=== PATIENT | female | born 1930 | race Caucasian/White ===

== ENCOUNTER 2017-10-04 11:42 | Outpatient (CLI) | payer MEDICARE | END 2017-10-04 11:43 | disposition home or self-care (01) | LOC: BICRAD 11:42 | PROVIDERS: ATTEND Specialist | DX: M54.16 Radiculopathy, lumbar region (principal); M48.061 Spinal stenosis, lumbar region without neurogenic claudication; M79.652 Pain in left thigh; M25.552 Pain in left hip; M79.605 Pain in left leg ==

== ENCOUNTER 2017-12-28 09:27 | Outpatient (CLI) | payer MEDICARE | END 2017-12-28 09:28 | disposition home or self-care (01) | LOC: BICMAMMO 09:27 | PROVIDERS: ATTEND Specialist | DX: Z13.820 Encounter for screening for osteoporosis (principal); M85.88 Other specified disorders of bone density and structure, other site | CPT/HCPCS: 77080 ==

== ENCOUNTER 2018-01-11 10:15 | Outpatient (CLI) | payer MEDICARE | END 2018-01-11 10:16 | disposition home or self-care (01) | LOC: BICMRI 10:15 | PROVIDERS: ATTEND Neurological Surgery | DX: M47.26 Other spondylosis with radiculopathy, lumbar region (principal); M51.16 Intervertebral disc disorders with radiculopathy, lumbar region; M51.17 Intervertebral disc disorders with radiculopathy, lumbosacral region; M99.83 Other biomechanical lesions of lumbar region; M47.27 Other spondylosis with radiculopathy, lumbosacral region | CPT/HCPCS: 72148 ==

== ENCOUNTER 2018-01-17 17:57 | Emergency (ER) | payer MEDICARE, OTHER ==
--- NOTE | 2018-01-17 18:48 | RAD ---
LEFT HAND THREE VIEWS: HISTORY: Injury and pain to left hand. FINDINGS: The carpals appear normally aligned and appear intact. The metacarpals and phalanges also appear int act. Mild degenerative changes are seen in the IP joints. IMPRESSION: No evidence of acute fracture. POS: [facility]
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
[2018-01-17] MEDS ORDERED: Bacitracin Zinc 1 Packet ONE (20:54)
== END 2018-01-17 21:42 | disposition home or self-care (01) ==
LOC: ERS 17:57
DX: S60.312A Abrasion of left thumb, initial encounter (principal); E11.9 Type 2 diabetes mellitus without complications; E78.5 Hyperlipidemia, unspecified; I10 Essential (primary) hypertension; V43.62XA Car passenger injured in collision with other type car in traffic accident, initial encounter
CPT/HCPCS: 29125; 70450; 71046; 72125

== ENCOUNTER 2018-06-02 08:52 | Outpatient (CLI) | payer MEDICARE | END 2018-06-02 08:53 | disposition home or self-care (01) | LOC: BICMAMMO 08:52 | PROVIDERS: ATTEND Specialist | DX: Z12.31 Encounter for screening mammogram for malignant neoplasm of breast (principal); Z85.71 Personal history of Hodgkin lymphoma | CPT/HCPCS: 77063; 77067 ==

== ENCOUNTER 2018-09-20 10:38 | Outpatient (CLI) | payer MEDICARE ==
--- NOTE | 2018-09-20 12:23 | CT ---
CT LUMBAR SPINE NONCONTRAST: 09/20/2018 HISTORY: Lumbar radiculopathy with pain radiating down left lower extremity. COMPARISON: MRI lumbar spine on 01/11/2018. FINDINGS: There is prominent right convex scoliosis with scoliotic curvature centered at the level of the L3 ve rtebral body. Multilevel degenerative changes are seen along the left lateral aspect of the scolioti c curvature involving the lumbar spine. Prominent osteophytes are present. The vertebral body heights are within normal limits, and there is no fracture or subluxation identifi ed. T12-L1: There is mild vacuum phenomenon and loss of intervertebral disk height. There is a mild dis k osteophyte complex with a small central disk protrusion. The neural foramina are widely patent, an d there is only slight effacement of the ventral subarachnoid space. L1-L2: There is no significant disk bulge or disk herniation. The central spinal canal and neural f oramina are patent. L2-L3: There is severe loss of intervertebral disk height with vacuum phenomenon present. There is a mild broad-based disk osteophyte complex, and facet hypertrophic changes are present on the left. The right neural foramen is widely patent, but there is mild to moderate left-sided neural foraminal narrowing. L3-L4: There is loss of intervertebral disk height with vacuum phenomenon seen in the intervertebral disk. Degenerative changes are present, greater on the right. There is a disk osteophyte complex p resent, but there is no significant narrowing of the central spinal canal. The right neural foramen is widely patent, but there is moderate left-sided neural foraminal narrowing. The degree of narrowi ng has maybe slightly progressed from the prior MRI examination. L4-L5: There is a mild disk osteophyte complex without significant narrowing of the central spinal c anal. Facet degenerative changes are seen, primarily on the right. There is resultant moderate righ t-sided neural foraminal narrowing. The left neural foramen is patent. L5-S1: There is loss of intervertebral disk height with vacuum phenomenon seen in the intervertebral disk. There is a disk osteophyte complex with what appears to be calcification along the right post erolateral margin of the intervertebral disk. The left neural foramen is patent, but there is modera te right-sided neural foraminal narrowing, primarily due to bony encroachment. The central spinal ca nal is also patent at this level. Review of the retroperitoneal structures demonstrates prominent vascular calcifications in the abdomi nal aorta. There are calcifications seen in an aortocaval location with calcifications in the region of the enlarged lymph node seen on the prior study in 2002, and findings may be related to bulky phillip cifications related to treated lymphoma with resolution of the mass and residual calcification presen t. No enlarged lymph nodes are seen on the visualized retroperitoneal structures on today's exam. IMPRESSION: 1. Multilevel degenerative changes throughout the spine, which do not appear significantly progresse d when compared to MRI examination in 2018. 2. Right convex scoliosis of the lumbar spine. POS: [facility]
== END 2018-09-20 10:39 | disposition home or self-care (01) ==
LOC: TBSIIMAG 10:38
PROVIDERS: ATTEND Neurological Surgery
DX: M47.26 Other spondylosis with radiculopathy, lumbar region (principal); M41.9 Scoliosis, unspecified
CPT/HCPCS: 72131

== ENCOUNTER 2018-10-10 01:42 | Outpatient (CLI) | payer MEDICARE ==
--- NOTE | 2018-10-11 15:55 | EKG ---
Test Reason : Blood Pressure : / mmHG Vent. Rate : 065 BPM Atrial Rate : 065 BPM P-R Int : 132 ms QRS Dur : 070 ms QT Int : 388 ms P-R-T Axes : 024 063 062 degrees QTc Int : 403 ms Sinus rhythm with Premature atrial complexes Anterior infarct , age undetermined cannot be excluded Abnormal ECG Confirmed by EFRA HUTCHINS ([id number]) on 10/11/2018 3:55:13 PM Referred By: TOSHA Confirmed By:EFRA HUTCHINS
== END 2018-10-10 01:43 | disposition home or self-care (01) ==
LOC: LABBT 01:42
PROVIDERS: ATTEND Neurological Surgery
DX: Z01.810 Encounter for preprocedural cardiovascular examination (principal); M54.16 Radiculopathy, lumbar region
CPT/HCPCS: 93005; 93010

== ENCOUNTER 2018-10-14 06:21 | Day surgery (SDC) | payer MEDICARE ==
[2018-10-10 09:28] VITALS: BMI 23.0
--- NOTE | 2018-10-13 16:43 | HP ---
HISTORY OF PRESENT ILLNESS: Ms. Irvin is known to us for evaluation last year of lower back pain and radiculopathy in the left lower extremity, L3 fashion, who ultimately was referred for epidural steroid injection therapy, which she performed for roughly 8 to 12 weeks, little to no relief. Since that time, she has been struggling with pain and has reached a point of exasperation, where now she really feels she would like to see something surgical. MRI from January of [address] scan from today revealed the same issue being levoscoliosis with foraminal stenosis at L3 and lateral recess stenosis at L2-3 and L3-4. She recently also developed some additional tingling down below the distribution of L3, which could possibly indicate L4 involvement, although this is not painful. PAST MEDICAL HISTORY: Includes non-Hodgkin lymphoma, hypertension, gastroesophageal reflux disease, diabetes, osteoporosis, and hypothyroidism. CURRENT MEDICATIONS: 1. Lisinopril. 2. Dexilant. 3. Metformin. 4. Fosamax. 5. Aspirin. 6. Synthroid. ALLERGIES: TO SULFA DRUGS AND NIACIN. PAST SURGICAL HISTORY: Hysterectomy and partial thyroidectomy. PHYSICAL EXAMINATION: GENERAL: The patient is alert and oriented x3. Gait is severely antalgic. Lower extremity motor exam is normal. ASSESSMENT: Lumbar radiculopathy. PLAN: Dr. Coon met with the patient, reviewed imaging, and advocated for left L3-4 facetectomy with unilateral instrumentation and fusion. He explained to the patient the risks, benefits, and alternatives to the procedure. The patient expressed understanding and elected to move forward with surgery as discussed. I do believe the patient is mentally competent and capable of making medical decisions for herself. We will move forward with the surgery as planned. Job ID: [id number]
[2018-10-14] MEDS ORDERED: Thrombin 5000 UNITS/5 ML VIAL ONE (08:44)
[2018-10-14] MEDS ORDERED: Bupivacaine HCl 0.5%/Epinephrine 1:200,000/PF 30 ml Vial ONE (08:44)
[2018-10-14] MEDS ORDERED: Fentanyl 100 MCG/2 ML VIAL ONE ×4 (08:52→12:12)
[2018-10-14] MEDS ORDERED: hydrALAZINE 20 MG/ML VIAL ONE (10:50)
--- NOTE | 2018-10-14 11:32 | OP ---
DATE OF PROCEDURE: 10/14/2018 [facility] SPECIALIST: Maximino Fields PA-C INDICATION: Pain. DIAGNOSIS: Lumbar radiculopathy. PROCEDURES PERFORMED: Left L3-L4 facetectomy, left L3-L4 unilateral fusion. ANESTHESIA: General. DESCRIPTION OF PROCEDURE: The patient was brought into the operating room and placed under general anesthesia. She was flipped from the supine to a prone position on the operating room table. A linear incision was planned over L3-L4. After prepping and draping and after an appropriate preoperative pause, the incision was created. The soft tissues were swept left of the midline. Self-retaining retractors were placed in the wound for optimal exposure. After confirming the appropriate level with C-arm fluoroscopy, high-speed cutting drill bit as well as 2, 3, and 4 mm Kerrisons were used to remove the facet joint as well as the medial on the lateral aspect of the lamina at L3-L4. In order to decompress, exiting L3 and descending L4 nerve roots. Pedicle screws were then placed with the aid of C-arm fluoroscopy at L3 and L4. Allograft and autograft material were placed in the lateral confines. The wound was irrigated. Hemostasis was maintained throughout. The wound was then closed in anatomic layers and a pressure dressing was applied. There were no known procedural complications. Job ID: [id number]
[2018-10-14] MEDS ORDERED: tiZANidine HCl 4 MG TAB PO PRN (11:57)
[2018-10-14] MEDS ORDERED: Morphine 2 MG/ML SYRINGE SLOW IVP PRN (11:57)
[2018-10-14] MEDS ORDERED: HYDROcodone/Acetaminophen 7.5/325 mg Tablet PO PRN (11:57)
[2018-10-14] MEDS ORDERED: Bisacodyl 10 MG SUPP PR PRN (11:57)
[2018-10-14] MEDS ORDERED: diphenhydrAMINE 50 MG/ML VIAL IVP PRN (11:57)
[2018-10-14] MEDS ORDERED: Mag-Al 1200 mg/1200 mg/30 ML UDCUP PO PRN (11:57)
[2018-10-14] MEDS ORDERED: Ondansetron PF 4 MG/2 ML Vial IVP PRN (11:57)
[2018-10-14] MEDS ORDERED: Alendronate Sodium 70 mg Tablet PO SCH (12:00)
[2018-10-14] MEDS: Sodium Chloride 0.9% 1,000 ML IV SCH (14:34)
[2018-10-14] MEDS ORDERED: Lidocaine 1% PF 5 ML VIAL ONE (14:47)
[2018-10-14] MEDS ORDERED: ePHEDrine 50 MG/ML VIAL ONE (14:47)
[2018-10-14] MEDS ORDERED: PROPOFOL 200 MG/20 ML VIAL ONE (14:47)
[2018-10-14] MEDS ORDERED: Succinylcholine Chloride 20 MG/ML 10 ml SYRINGE FS ONE (14:47)
[2018-10-14] MEDS ORDERED: Ondansetron PF 4 MG/2 ML Vial ONE (14:47)
[2018-10-14] MEDS ORDERED: Dexamethasone 20 MG/5 ML VIAL ONE (14:47)
[2018-10-14] MEDS ORDERED: Morphine 4 MG/ML VIAL SLOW IVP PRN (16:28)
[2018-10-14] MEDS ORDERED: Famotidine 20 MG TAB PO SCH (16:30)
[2018-10-14] MEDS: CEFAZOLIN 2 GM in Premix Bag 1 BAG IVPB SCH (16:58)
[2018-10-14] MEDS: metFORMIN 500 MG TAB PO SCH (17:05)
[2018-10-14] MEDS: HYDROcodone/Acetaminophen 7.5/325 mg Tablet PO PRN (20:48)
[2018-10-14] MEDS: Lisinopril 10 MG TAB PO SCH (22:10)
[2018-10-15] MEDS: CEFAZOLIN 2 GM in Premix Bag 1 BAG IVPB SCH (01:26)
[2018-10-15] MEDS: Sodium Chloride 0.9% 1,000 ML IV SCH ×2 (01:31→14:41)
[2018-10-15] MEDS: HYDROcodone/Acetaminophen 7.5/325 mg Tablet PO PRN ×3 (06:13→17:33)
[2018-10-15 07:19] LABS: #Lymphocytes 2.5 thou/uL (1.20-3.40); #Monocytes 0.8 thou/uL (0.11-0.59); %Basophils 0.5 % (0.0-1.0); %Eosinophils 0.1 % (0.0-10.0); %Lymphocytes 26.9 % (21.0-51.0); %Monocytes 8.6 % (0.0-10.0); %Neutrophils 63.9 % (42.0-75.0); Hemoglobin 9.3 g/dL (12.0-16.0); Mean Corpuscular HGB CONC 32.5 g/dL (32.0-36.0); Mean Corpuscular Hemoglobin 30.1 pg (27.0-31.0); Mean Corpuscular Volume 92.7 fL (78.0-98.0); Platelet Count 202 thou/uL (130-400); RBC Distribution Width 12.7 % (11.5-14.5); Red Blood Cell (RBC) Count 3.07 mill/uL (4.20-5.40); White Blood Cell (WBC) Count 9.4 thou/uL (4.8-10.8)
[2018-10-15 07:45] LABS: Anion Gap 12 mmol/L (10-20); BUN (Urea Nitrogen) 16 mg/dL (9.8-20.1); Calc. Creatinine Clearance 40 mL/min (70-130); Carbon Dioxide 24 mmol/L (23-31); Chloride 104 mmol/L (98-107); Estimated GFR-MDRD 58; Glucose 93 mg/dL (83-110); Potassium 4.2 mmol/L (3.5-5.1); Sodium 136 mmol/L (136-145)
[2018-10-15] MEDS: Brimonidine Tartrate 0.2% Ophth Soln 5 ml Bottle EA EYE SCH (09:36)
[2018-10-15] MEDS: Fish Oil 1,000 MG CAP PO SCH (09:37)
[2018-10-15] MEDS: Famotidine 20 MG TAB PO SCH (09:37)
[2018-10-15] MEDS: Multivitamin W/ Minerals 1 TAB PO SCH (09:38)
[2018-10-15] MEDS: Rosuvastatin 10 MG TAB PO SCH (09:38)
[2018-10-15] MEDS: Cyanocobalamin (Vitamin B-12) 1,000 MCG TAB PO SCH (09:39)
[2018-10-15] MEDS: metFORMIN 500 MG TAB PO SCH ×2 (09:40→17:32)
[2018-10-15] MEDS ORDERED: Calcium Citrate 950 MG TAB PO SCH (10:15)
--- NOTE | 2018-10-15 11:11 | PRG ---
DATE OF SERVICE: 10/15/2018 SUBJECTIVE: Ms. Irvin sitting on the edge of the bed when I visited with her. She had already mobilized in the hallways with a walker. She is alert and oriented. She does report anticipated axial postsurgical back pain. She also reports some left leg pain. I am pleased with her progress today. I believe that her best move with respect to disposition will be towards inpatient rehab. We are currently awaiting inpatient rehab approval for that purpose. Job ID: [id number]
[2018-10-15] MEDS: Lisinopril 10 MG TAB PO SCH (21:02)
[2018-10-15] MEDS: Calcium Citrate 950 MG TAB PO SCH (21:02)
[2018-10-16] MEDS: Sodium Chloride 0.9% 1,000 ML IV SCH ×2 (04:30→17:18)
[2018-10-16] MEDS: Levothyroxine Sodium 50 MCG TAB PO SCH (05:59)
--- NOTE | 2018-10-16 07:35 | PRG ---
DATE OF SERVICE: Ms. Irvin is postop day 2 following lumbar facetectomy and fusion. She ambulated a whole lot yesterday and did quite well with that. She does have some incisional pains which is not unexpected given the procedure that was performed. Her left leg pain continues to improve and she feels like it has made a lot of progress in the last 24 hours specifically. We will see to have her ambulate more today and hopefully work with therapy again. Her hope is still to get a rehab. Otherwise, she may preclude this as she continues to advance physically as well as she has. Job ID: [id number]
[2018-10-16] MEDS: HYDROcodone/Acetaminophen 7.5/325 mg Tablet PO PRN ×2 (08:01→17:19)
[2018-10-16 08:19] LABS: Anion Gap 11 mmol/L (10-20); BUN (Urea Nitrogen) 15 mg/dL (9.8-20.1); Calc. Creatinine Clearance 43 mL/min (70-130); Calcium 7.6 mg/dL (7.8-10.44); Carbon Dioxide 26 mmol/L (23-31); Chloride 105 mmol/L (98-107); Estimated GFR-MDRD 64; Glucose 89 mg/dL (83-110); Potassium 4.1 mmol/L (3.5-5.1); Sodium 138 mmol/L (136-145)
[2018-10-16] MEDS: Fish Oil 1,000 MG CAP PO SCH (09:12)
[2018-10-16] MEDS: metFORMIN 500 MG TAB PO SCH ×2 (09:12→17:19)
[2018-10-16] MEDS: Brimonidine Tartrate 0.2% Ophth Soln 5 ml Bottle EA EYE SCH (09:13)
[2018-10-16] MEDS: Cyanocobalamin (Vitamin B-12) 1,000 MCG TAB PO SCH (09:13)
[2018-10-16] MEDS: Multivitamin W/ Minerals 1 TAB PO SCH (09:13)
[2018-10-16] MEDS: Rosuvastatin 10 MG TAB PO SCH (09:13)
[2018-10-16] MEDS: Famotidine 20 MG TAB PO SCH (09:13)
[2018-10-16] MEDS: Calcium Citrate 950 MG TAB PO SCH ×2 (09:44→20:39)
[2018-10-16] MEDS: Lisinopril 10 MG TAB PO SCH (20:39)
[2018-10-17] MEDS: Levothyroxine Sodium 50 MCG TAB PO SCH (05:21)
--- NOTE | 2018-10-17 07:24 | PRG ---
DATE OF SERVICE: 10/17/2018 Ms. Irvin is postop day #3 following lumbar facetectomy and fusion. Again yesterday, she was up and walking nearly 300 feet. She continued to have some soreness, which is to be expected this early after this particular surgery, but overall seems to be rather functional. I am not sure if she will qualify for rehab or not. I will follow up with Case Management this morning to obtain comfort and expectations for approval. She does report that she has not had a bowel movement since she has been here. We will add some MiraLAX to try to get ahead of any bleeding or constipation. All followup later this morning. Job ID: [id number]
[2018-10-17] MEDS: Sodium Chloride 0.9% 1,000 ML IV SCH ×2 (07:28→20:26)
[2018-10-17] MEDS: Brimonidine Tartrate 0.2% Ophth Soln 5 ml Bottle EA EYE SCH (08:33)
[2018-10-17] MEDS: metFORMIN 500 MG TAB PO SCH ×2 (08:34→16:54)
[2018-10-17] MEDS: Calcium Citrate 950 MG TAB PO SCH ×2 (08:34→20:26)
[2018-10-17] MEDS: Multivitamin W/ Minerals 1 TAB PO SCH (08:34)
[2018-10-17] MEDS: Cyanocobalamin (Vitamin B-12) 1,000 MCG TAB PO SCH (08:34)
[2018-10-17] MEDS: Fish Oil 1,000 MG CAP PO SCH (08:34)
[2018-10-17] MEDS: Famotidine 20 MG TAB PO SCH (08:34)
[2018-10-17] MEDS: Rosuvastatin 10 MG TAB PO SCH (08:34)
--- NOTE | 2018-10-17 08:38 | PRG ---
DATE OF SERVICE: 10/15/2018 Ms. Irvin is postop day #1 following lumbar decompression and fusion unilaterally at L3-L4 by Dr. Coon yesterday. She has ambulated well in her room and to the bathroom. She did have some increasing pain yesterday with standard pain medications orally. At bedside, she is resting comfortably and states that she has really had minimal pain either in her back or her leg. I would like to see her out just walking some more today in the hallways. We will give PT a call, this was ordered yesterday. Plan right now is possible Inpatient Rehab though with [employer] we may be waiting several days for recommendations from them on her approval or denial, so it is possible that she may get well enough that she could actually go home . This was discussed with the patient and family at bedside. Job ID: [id number]
[2018-10-17] MEDS: HYDROcodone/Acetaminophen 7.5/325 mg Tablet PO PRN (10:56)
--- NOTE | 2018-10-17 16:17 | PRG ---
DATE OF SERVICE: 10/17/2018 SUBJECTIVE: Ms. Irvin is now 3 days status post lumbar decompression and fusion. She has done quite well. She has mobilized throughout the hallways. Physical Therapy has signed off. She is hopeful for inpatient rehab, although I am somewhat doubtful that she will receive approval given her current mobility status. Hopefully, we will know something later today. If she does not get approved for rehab, we will look toward leaving her home potentially with home health. Job ID: [id number]
[2018-10-17] MEDS: Lisinopril 10 MG TAB PO SCH (20:26)
[2018-10-18] MEDS: Levothyroxine Sodium 50 MCG TAB PO SCH (06:17)
[2018-10-18] MEDS: Brimonidine Tartrate 0.2% Ophth Soln 5 ml Bottle EA EYE SCH (09:19)
[2018-10-18] MEDS: Fish Oil 1,000 MG CAP PO SCH (09:20)
[2018-10-18] MEDS: Famotidine 20 MG TAB PO SCH (09:20)
[2018-10-18] MEDS: Multivitamin W/ Minerals 1 TAB PO SCH (09:20)
[2018-10-18] MEDS: Calcium Citrate 950 MG TAB PO SCH ×2 (09:20→20:46)
[2018-10-18] MEDS: metFORMIN 500 MG TAB PO SCH ×2 (09:20→17:24)
[2018-10-18] MEDS: Cyanocobalamin (Vitamin B-12) 1,000 MCG TAB PO SCH (09:20)
[2018-10-18] MEDS: Rosuvastatin 10 MG TAB PO SCH (09:20)
[2018-10-18] MEDS: Sodium Chloride 0.9% 1,000 ML IV SCH ×2 (09:22→21:32)
[2018-10-18] MEDS: HYDROcodone/Acetaminophen 7.5/325 mg Tablet PO PRN (19:40)
[2018-10-18] MEDS: Lisinopril 10 MG TAB PO SCH (20:46)
--- NOTE | 2018-10-19 01:37 | PRG ---
DATE OF SERVICE: 10/19/2018 Ms. Irvin is now postop day 4 following lumbar spinal fusion. She has developed a mild pain in the lateral left lower extremity, which came up in the last 24 hours and is likely related to inflammation. She has been mobilizing well to the point where she likely will qualify for inpatient rehab, so all things have been submitted for [facility] instead of [place] at her request. She does become somewhat tearful. She is concerned about not being able to go to an intermediate facility before going home as she worries not being able to handle being at home not at this phase after surgery. I will continue to work with therapy while she is here and await decision from [facility]. I spoke with Awa this morning regarding this. Job ID: [id number]
[2018-10-19] MEDS: HYDROcodone/Acetaminophen 7.5/325 mg Tablet PO PRN ×2 (06:10→12:46)
[2018-10-19] MEDS: Levothyroxine Sodium 50 MCG TAB PO SCH (06:11)
[2018-10-19] MEDS: Sodium Chloride 0.9% 1,000 ML IV SCH (07:18)
[2018-10-19] MEDS: metFORMIN 500 MG TAB PO SCH (08:18)
[2018-10-19] MEDS: Rosuvastatin 10 MG TAB PO SCH (08:19)
[2018-10-19] MEDS: Cyanocobalamin (Vitamin B-12) 1,000 MCG TAB PO SCH (08:19)
[2018-10-19] MEDS: Calcium Citrate 950 MG TAB PO SCH (08:19)
[2018-10-19] MEDS: Fish Oil 1,000 MG CAP PO SCH (08:19)
[2018-10-19] MEDS: Famotidine 20 MG TAB PO SCH (08:19)
[2018-10-19] MEDS: Multivitamin W/ Minerals 1 TAB PO SCH (08:19)
[2018-10-19] MEDS: Brimonidine Tartrate 0.2% Ophth Soln 5 ml Bottle EA EYE SCH (08:21)
[2018-10-19 12:32] VITALS: BP 127/62; TEMP 97.9
== END 2018-10-19 13:14 ==
LOC: SDC 06:21 → SURG B 14:39 → SURG A 10-17 12:06 → SURG B 10-17 12:07 → SDC 10-19 13:14
PROVIDERS: ATTEND Neurological Surgery
PROC: 0SG007J Fusion of Lumbar Vertebral Joint with Autologous Tissue Substitute, Posterior Approach, Anterior Column, Open Approach (ICD-10-PCS; principal; 2018-10-14)
DX: M54.16 Radiculopathy, lumbar region (principal); E11.9 Type 2 diabetes mellitus without complications; K21.9 Gastro-esophageal reflux disease without esophagitis; E78.5 Hyperlipidemia, unspecified; I10 Essential (primary) hypertension; M81.0 Age-related osteoporosis without current pathological fracture; E03.9 Hypothyroidism, unspecified; Z85.72 Personal history of non-Hodgkin lymphomas; Z79.82 Long term (current) use of aspirin; Z79.84 Long term (current) use of oral hypoglycemic drugs; Z79.899 Other long term (current) drug therapy; Z88.2 Allergy status to sulfonamides; Z88.8 Allergy status to other drugs, medicaments and biological substances
CPT/HCPCS: 36415; 36416; 76000; 80048; 85025; C1713; J0360; J0670; J1100; J1200; J2001; J2270; J2405; J2704; J3010; J3490

== ENCOUNTER 2019-06-08 09:39 | Outpatient (CLI) | payer MEDICARE ==
--- NOTE | 2019-06-08 10:21 | MMO ---
Bilateral MAMMO Bilat Screen [facility]. CLINICAL HISTORY: Patient is 89 years old and is seen for screening. The patient has no family history of breast cancer. The patient has a history of pancreatic cancer at age 74. The patient has a history of left Excisional Biopsy at age 36 - benign. VIEWS: The views performed were: bilateral craniocaudal with tomosynthesis and bilateral mediolateral oblique with tomosynthesis. FILMS COMPARED: The present examination has been compared to prior imaging studies performed at [facility] on 05/28/2015, 05/29/2016, 05/31/2017 and 06/02/2018. This study has been interpreted with the assistance of computer-aided detection. MAMMOGRAM FINDINGS: There are scattered fibroglandular densities. There are stable benign appearing calcifications seen in both breasts. There are also vascular calcifications. There are no suspicious masses, suspicious calcifications, or new areas of architectural distortion. IMPRESSION: THERE IS NO MAMMOGRAPHIC EVIDENCE OF MALIGNANCY. A ROUTINE FOLLOW-UP MAMMOGRAM IN 1 YEAR IS RECOMMENDED. THE RESULTS OF THIS EXAM WERE SENT TO THE PATIENT. ACR BI-RADS Category 2 - Benign finding MAMMOGRAPHY NOTE: 1. A negative mammogram report should not delay a biopsy if a dominant of clinically suspicious mass is present. 2. Approximately 10% to 15% of breast cancers are not detected by mammography. 3. Adenosis and dense breasts may obscure an underlying neoplasm. Reported by: BENITA RICHARD MD Electonically Signed: [id number]
== END 2019-06-08 09:40 | disposition home or self-care (01) ==
LOC: BICMAMMO 09:39
PROVIDERS: ATTEND Specialist
DX: Z12.31 Encounter for screening mammogram for malignant neoplasm of breast (principal)
CPT/HCPCS: 77063; 77067

== ENCOUNTER 2020-06-10 08:48 | Outpatient (CLI) | payer MEDICARE ==
--- NOTE | 2020-06-10 09:28 | MMO ---
Bilateral MAMMO Bilat Screen [facility]. CLINICAL HISTORY: Patient is 89 years old and is seen for screening. The patient has no family history of breast cancer. The patient has a history of pancreatic cancer at age 74. The patient has a history of left Excisional Biopsy at age 36 - benign. VIEWS: The views performed were: bilateral craniocaudal with tomosynthesis and bilateral mediolateral oblique with tomosynthesis. FILMS COMPARED: The present examination has been compared to prior imaging studies performed at [facility] on 05/29/2016, 05/31/2017, 06/02/2018 and 06/08/2019. This study has been interpreted with the assistance of computer-aided detection. MAMMOGRAM FINDINGS: There are scattered fibroglandular densities. There are stable benign appearing calcifications seen in both breasts. There are also vascular calcifications. There are no suspicious masses, suspicious calcifications, or new areas of architectural distortion. IMPRESSION: THERE IS NO MAMMOGRAPHIC EVIDENCE OF MALIGNANCY. A ROUTINE FOLLOW-UP MAMMOGRAM IN 1 YEAR IS RECOMMENDED. THE RESULTS OF THIS EXAM WERE SENT TO THE PATIENT. ACR BI-RADS Category 2 - Benign finding MAMMOGRAPHY NOTE: 1. A negative mammogram report should not delay a biopsy if a dominant of clinically suspicious mass is present. 2. Approximately 10% to 15% of breast cancers are not detected by mammography. 3. Adenosis and dense breasts may obscure an underlying neoplasm. Reported by: BENITA RICHARD MD Electonically Signed: [id number]
== END 2020-06-10 08:49 | disposition home or self-care (01) ==
LOC: BICMAMMO 08:48
PROVIDERS: ATTEND Specialist
DX: Z12.31 Encounter for screening mammogram for malignant neoplasm of breast (principal); Z91.89 Other specified personal risk factors, not elsewhere classified; Z85.07 Personal history of malignant neoplasm of pancreas
CPT/HCPCS: 77063; 77067

== ENCOUNTER 2021-07-11 11:36 | Outpatient (CLI) | payer MEDICARE | END 2021-07-11 11:37 | disposition home or self-care (01) | LOC: BICMAMMO 11:36 | PROVIDERS: ATTEND Specialist | DX: Z12.31 Encounter for screening mammogram for malignant neoplasm of breast (principal); Z85.07 Personal history of malignant neoplasm of pancreas | CPT/HCPCS: 77063; 77067 ==

== ENCOUNTER 2021-12-06 21:52 | Inpatient (IN) | payer MEDICARE ==
[2021-12-06] MEDS ORDERED: Morphine 2 MG/ML VIAL ONE (22:34)
[2021-12-06] MEDS ORDERED: Ketorolac Tromethamine 30 MG/ML VIAL ONE (22:34)
[2021-12-07] MEDS ORDERED: Ondansetron ODT 4 MG TAB SL PRN (04:30)
[2021-12-07] MEDS ORDERED: Ondansetron PF 4 MG/2 ML Vial IVP PRN (04:30)
[2021-12-07 06:33] VITALS: BMI 27.1
[2021-12-07 11:50] LABS: #Basophils 0.1 thou/uL (0.0-0.2); #Eosinphils 0.1 thou/uL (0.0-0.7); #Lymphocytes 2.3 thou/uL (1.20-3.40); #Monocytes 0.6 thou/uL (0.11-0.59); #Neutrophils 3.8 thou/uL (1.40-6.50); %Basophils 0.9 % (0.0-1.0); %Eosinophils 1.3 % (0.0-10.0); %Lymphocytes 33.4 % (21.0-51.0); %Monocytes 8.7 % (0.0-10.0); %Neutrophils 55.7 % (42.0-75.0); Hemoglobin 11.3 g/dL (12.0-16.0); Mean Corpuscular Hemoglobin 32.1 pg (27.0-31.0); Mean Corpuscular Volume 97.1 fL (78.0-98.0); Mean Platelet Volume 6.5 fL (7.4-10.4); Platelet Count 200 thou/uL (130-400); Red Blood Cell (RBC) Count 3.52 mill/uL (4.20-5.40); White Blood Cell (WBC) Count 6.8 thou/uL (4.8-10.8)
[2021-12-07] MEDS ORDERED: HYDROcodone/Acetaminophen 5/325 mg Tablet PO PRN (11:59)
[2021-12-07] MEDS ORDERED: Fentanyl 100 MCG/2 ML VIAL SLOW IVP PRN (11:59)
[2021-12-07] MEDS ORDERED: Furosemide 20 MG/2 ML VIAL SLOW IVP SCH (12:00)
[2021-12-07] MEDS ORDERED: Terazosin HCl 1 MG CAP PO SCH ×2 (12:15→21:00)
[2021-12-07] MEDS: HYDROcodone/Acetaminophen 5/325 mg Tablet PO PRN (12:33)
[2021-12-07 12:43] LABS: Hemoglobin A1c 5.6 % (4.0-6.0)
[2021-12-07 12:55] LABS: ALT (SGPT) 17 U/L (8-55); AST (SGOT) 21 U/L (5-34); Albumin 3.8 g/dL (3.4-4.8); Alkaline Phosphatase 54 U/L (40-110); Anion Gap 15 mmol/L (10-20); BUN (Urea Nitrogen) 20 mg/dL (9.8-20.1); Bilirubin, Total 0.7 mg/dL (0.2-1.2); Calc. Creatinine Clearance 30 mL/min (70-130); Calcium 7.8 mg/dL (7.8-10.44); Carbon Dioxide 24 mmol/L (23-31); Chloride 104 mmol/L (98-107); Globulin 2.9 g/dL (2.4-3.5); Glucose 84 mg/dL (83-110); Potassium 3.9 mmol/L (3.5-5.1); Protein, Total 6.7 g/dL (5.8-8.1); Sodium 139 mmol/L (136-145)
[2021-12-07] MEDS: Cyclobenzaprine 10 MG TAB PO SCH ×2 (16:55→21:26)
[2021-12-07] MEDS: Lisinopril 20 MG TAB PO SCH (21:27)
[2021-12-07 21:35] LABS: SARS-CoV-2 PCR by NAA Not Detected (NotDetected)
[2021-12-08 04:48] LABS: Anion Gap 16 mmol/L (10-20); BUN (Urea Nitrogen) 24 mg/dL (9.8-20.1); Calc. Creatinine Clearance 28 mL/min (70-130); Calcium 7.4 mg/dL (7.8-10.44); Carbon Dioxide 24 mmol/L (23-31); Cardiac Risk 3.5 (Less than 4.5); Chloride 104 mmol/L (98-107); Cholesterol 154 mg/dl (< 200 Desired); Glucose 76 mg/dL (83-110); HDL Cholesterol 44 mg/dL (>60 Neg Risk); LDL Cholesterol, Calculated 87 mg/dL; Potassium 3.9 mmol/L (3.5-5.1); Sodium 140 mmol/L (136-145); Triglycerides 113 mg/dL (Less than 150)
[2021-12-08] MEDS: Levothyroxine Sodium 50 MCG TAB PO SCH (06:23)
[2021-12-08] MEDS: HYDROcodone/Acetaminophen 5/325 mg Tablet PO PRN ×3 (06:31→22:33)
[2021-12-08] MEDS ORDERED: Furosemide 20 MG/2 ML VIAL SLOW IVP SCH (09:00)
[2021-12-08] MEDS: Lisinopril 20 MG TAB PO SCH ×2 (09:53→20:40)
[2021-12-08] MEDS: Metolazone 5 MG TAB PO SCH (09:53)
[2021-12-08] MEDS: Cyclobenzaprine 10 MG TAB PO SCH ×3 (09:54→20:40)
[2021-12-08] MEDS: Aspirin 81 mg Enteric Coated Tablet PO SCH (09:54)
[2021-12-08] MEDS: Terazosin HCl 5 MG CAP PO SCH (20:39)
[2021-12-09 05:12] LABS: Anion Gap 15 mmol/L (10-20); BUN (Urea Nitrogen) 22 mg/dL (9.8-20.1); Calc. Creatinine Clearance 30 mL/min (70-130); Calcium 7.4 mg/dL (7.8-10.44); Carbon Dioxide 23 mmol/L (23-31); Chloride 103 mmol/L (98-107); Glucose 80 mg/dL (83-110); Potassium 3.8 mmol/L (3.5-5.1); Sodium 137 mmol/L (136-145)
[2021-12-09] MEDS: Levothyroxine Sodium 50 MCG TAB PO SCH (05:56)
[2021-12-09] MEDS ORDERED: Sodium Chloride 0.9% 1,000 ML IV SCH (06:00)
[2021-12-09] MEDS ORDERED: ceFAZolin 2 GM/Dextrose 50 ML IVPB ONE (06:32)
[2021-12-09] MEDS ORDERED: Lidocaine 1% w/Epinephrine 1:100K 20 ML VIAL ONE (06:32)
[2021-12-09] MEDS ORDERED: Lidocaine 1% (PF) 30 ML VIAL ONE ×3 (06:35→07:31)
[2021-12-09] MEDS ORDERED: Gentamicin Sulfate 80 MG in Premix Bag 1 BAG FS SCH (06:45)
[2021-12-09] MEDS ORDERED: Midazolam HCl 2 mg/2 ml Vial ONE (07:05)
[2021-12-09] MEDS ORDERED: Fentanyl 100 MCG/2 ML VIAL ONE (07:05)
[2021-12-09] MEDS ORDERED: Iopamidol 370 76% 50 ML VIAL FS ONE (09:02)
[2021-12-09] MEDS ORDERED: Acetaminophen 325 MG TAB PO PRN (09:10)
[2021-12-09] MEDS: Lisinopril 20 MG TAB PO SCH ×2 (09:31→21:26)
[2021-12-09] MEDS: Metolazone 5 MG TAB PO SCH (09:32)
[2021-12-09] MEDS: Cyclobenzaprine 10 MG TAB PO SCH ×3 (09:33→21:26)
[2021-12-09] MEDS: Aspirin 81 mg Enteric Coated Tablet PO SCH (09:33)
[2021-12-09] MEDS: cloNIDine 0.1 MG TAB PO PRN (11:10)
[2021-12-09] MEDS: hydrALAZINE 20 MG/ML VIAL SLOW IVP PRN (14:11)
[2021-12-09] MEDS: HYDROcodone/Acetaminophen 5/325 mg Tablet PO PRN (15:10)
[2021-12-09] MEDS: Cephalexin 250 MG CAP PO SCH ×2 (15:10→21:27)
[2021-12-09] MEDS: Terazosin HCl 5 MG CAP PO SCH (21:26)
[2021-12-10 04:23] LABS: #Basophils 0.1 thou/uL (0.0-0.2); #Eosinphils 0.1 thou/uL (0.0-0.7); #Lymphocytes 1.7 thou/uL (1.20-3.40); #Monocytes 0.7 thou/uL (0.11-0.59); #Neutrophils 4.7 thou/uL (1.40-6.50); %Eosinophils 1.4 % (0.0-10.0); %Lymphocytes 23.2 % (21.0-51.0); %Monocytes 9.3 % (0.0-10.0); %Neutrophils 65.1 % (42.0-75.0); Hemoglobin 11.8 g/dL (12.0-16.0); Mean Corpuscular HGB CONC 32.7 g/dL (32.0-36.0); Mean Corpuscular Hemoglobin 31.6 pg (27.0-31.0); Mean Corpuscular Volume 96.5 fL (78.0-98.0); Mean Platelet Volume 6.8 fL (7.4-10.4); Platelet Count 209 thou/uL (130-400); Red Blood Cell (RBC) Count 3.73 mill/uL (4.20-5.40); White Blood Cell (WBC) Count 7.2 thou/uL (4.8-10.8)
[2021-12-10 04:35] LABS: Anion Gap 17 mmol/L (10-20); BUN (Urea Nitrogen) 27 mg/dL (9.8-20.1); Calc. Creatinine Clearance 29 mL/min (70-130); Calcium 7.5 mg/dL (7.8-10.44); Carbon Dioxide 23 mmol/L (23-31); Chloride 99 mmol/L (98-107); Glucose 79 mg/dL (83-110); Sodium 135 mmol/L (136-145)
[2021-12-10] MEDS: Levothyroxine Sodium 50 MCG TAB PO SCH (05:43)
[2021-12-10] MEDS: Lisinopril 20 MG TAB PO SCH ×2 (09:03→20:30)
[2021-12-10] MEDS: Metolazone 5 MG TAB PO SCH (09:03)
[2021-12-10] MEDS: Cyclobenzaprine 10 MG TAB PO SCH ×3 (09:03→20:28)
[2021-12-10] MEDS: Cephalexin 250 MG CAP PO SCH ×3 (09:03→20:30)
[2021-12-10] MEDS: Aspirin 81 mg Enteric Coated Tablet PO SCH (09:03)
[2021-12-10] MEDS: HYDROcodone/Acetaminophen 5/325 mg Tablet PO PRN ×2 (09:04→15:32)
[2021-12-10] MEDS: Terazosin HCl 5 MG CAP PO SCH (20:30)
[2021-12-11] MEDS: HYDROcodone/Acetaminophen 5/325 mg Tablet PO PRN ×3 (05:43→22:05)
[2021-12-11] MEDS: Levothyroxine Sodium 50 MCG TAB PO SCH (05:44)
[2021-12-11] MEDS: Cyclobenzaprine 10 MG TAB PO SCH ×3 (09:43→21:33)
[2021-12-11] MEDS: Aspirin 81 mg Enteric Coated Tablet PO SCH (09:44)
[2021-12-11] MEDS: Cephalexin 250 MG CAP PO SCH ×3 (09:44→21:33)
[2021-12-11] MEDS: Metolazone 5 MG TAB PO SCH (09:44)
[2021-12-11] MEDS: Lisinopril 20 MG TAB PO SCH ×2 (10:37→21:33)
[2021-12-11] MEDS: Terazosin HCl 5 MG CAP PO SCH (21:33)
[2021-12-11] MEDS ORDERED: Diltiazem HCl 125 MG in Premix Bag 1 BAG IVPB SCH (23:00)
[2021-12-11] MEDS ORDERED: Diltiazem HCl 125 MG, Admixture Fee 1 EACH in Sodium Chloride 0.9% 100 ML IVPB SCH (23:00)
[2021-12-12] MEDS ORDERED: Sodium Chloride 0.9% 500 ML IVPB SCH ×2 (04:30→04:45)
[2021-12-12] MEDS: Levothyroxine Sodium 50 MCG TAB PO SCH (05:25)
[2021-12-12] MEDS: Lisinopril 20 MG TAB PO SCH (09:12)
[2021-12-12] MEDS: Cyclobenzaprine 10 MG TAB PO SCH ×2 (09:19→14:16)
[2021-12-12] MEDS: Metolazone 5 MG TAB PO SCH (09:19)
[2021-12-12] MEDS: Cephalexin 250 MG CAP PO SCH ×3 (09:20→21:05)
[2021-12-12] MEDS: Aspirin 81 mg Enteric Coated Tablet PO SCH (09:20)
[2021-12-12] MEDS ORDERED: Acetaminophen 325 MG TAB PO SCH ×2 (12:00→13:30)
[2021-12-12] MEDS ORDERED: Ketorolac Tromethamine 30 MG/ML VIAL IVP SCH ×3 (12:30→22:00)
[2021-12-12] MEDS ORDERED: Fentanyl CADD 100 ML IVPB SCH (12:30)
[2021-12-12] MEDS ORDERED: traMADol HCl 50 MG TAB PO SCH ×2 (13:30→21:00)
[2021-12-12] MEDS: Dextrose 5 %-0.45 % NaCl 1,000 ML IV SCH ×2 (14:15→21:00)
[2021-12-12] MEDS ORDERED: Megestrol Acetate 800 MG/20 ML UDCUP PO SCH (15:01)
[2021-12-12] MEDS: Dronedarone HCl 400 MG TAB PO SCH (18:26)
[2021-12-12] MEDS: Acetaminophen 325 MG TAB PO SCH (18:27)
[2021-12-12] MEDS ORDERED: Zolpidem Tartrate 5 MG TAB PO SCH (21:00)
[2021-12-12] MEDS: Megestrol Acetate 800 MG/20 ML UDCUP PO SCH (21:06)
[2021-12-12] MEDS: Sodium Chloride 0.9% 1,000 ML IV SCH (22:18)
[2021-12-12] MEDS: Ketorolac Tromethamine 30 MG/ML VIAL IVP SCH (22:35)
[2021-12-12] MEDS: Ondansetron ODT 4 MG TAB PO PRN (22:52)
[2021-12-13] MEDS: Acetaminophen 325 MG TAB PO SCH ×5 (00:09→23:49)
[2021-12-13] MEDS ORDERED: DOPamine 400 MG/D5W 250 ML 250 ML ONE (01:04)
[2021-12-13] MEDS ORDERED: DOPamine 400 MG/D5W 250 ML 250 ML IVPB SCH (01:15)
[2021-12-13] MEDS ORDERED: Sodium Chloride 0.9% 500 ML IV SCH (01:15)
[2021-12-13] MEDS: Ondansetron ODT 4 MG TAB PO PRN (02:31)
[2021-12-13] MEDS: Sodium Chloride 0.9% 1,000 ML IV SCH ×3 (02:34→14:59)
[2021-12-13 04:43] LABS: #Eosinphils 0.2 thou/uL (0.0-0.7); #Monocytes 0.9 thou/uL (0.11-0.59); #Neutrophils 7.9 thou/uL (1.40-6.50); %Basophils 0.1 % (0.0-1.0); %Eosinophils 1.5 % (0.0-10.0); %Lymphocytes 9.9 % (21.0-51.0); %Monocytes 9.2 % (0.0-10.0); %Neutrophils 79.2 % (42.0-75.0); Hemoglobin 10.3 g/dL (12.0-16.0); Mean Corpuscular HGB CONC 31.4 g/dL (32.0-36.0); Mean Corpuscular Hemoglobin 32.2 pg (27.0-31.0); Mean Platelet Volume 7.4 fL (7.4-10.4); Platelet Count 163 thou/uL (130-400); RBC Distribution Width 13.1 % (11.5-14.5)
[2021-12-13] MEDS: Ketorolac Tromethamine 30 MG/ML VIAL IVP SCH ×3 (06:06→20:51)
[2021-12-13] MEDS: Levothyroxine Sodium 50 MCG TAB PO SCH (06:08)
[2021-12-13] MEDS: Aspirin 81 mg Enteric Coated Tablet PO SCH (08:59)
[2021-12-13] MEDS: Cephalexin 250 MG CAP PO SCH ×3 (08:59→20:52)
[2021-12-13] MEDS: Dronedarone HCl 400 MG TAB PO SCH ×2 (08:59→17:23)
[2021-12-13] MEDS: Megestrol Acetate 800 MG/20 ML UDCUP PO SCH ×4 (09:00→20:52)
[2021-12-13] MEDS: Metolazone 5 MG TAB PO SCH (09:47)
[2021-12-13 11:23] LABS: Chloride 96 mmol/L (98-107); Sodium 126 mmol/L (136-145)
[2021-12-13 11:24] LABS: Calcium 6.2 mg/dL (7.8-10.44); Glucose 152 mg/dL (83-110)
[2021-12-13 11:26] LABS: Anion Gap 19 mmol/L (10-20); Carbon Dioxide 16 mmol/L (23-31)
[2021-12-13 11:27] LABS: Calc. Creatinine Clearance 25 mL/min (70-130)
[2021-12-13 11:28] LABS: BUN (Urea Nitrogen) 44 mg/dL (9.8-20.1)
[2021-12-13] MEDS: DOPamine 400 MG/D5W 250 ML 250 ML IVPB SCH (12:24)
[2021-12-14 04:36] LABS: #Eosinphils 0.2 thou/uL (0.0-0.7); #Monocytes 0.6 thou/uL (0.11-0.59); #Neutrophils 2.3 thou/uL (1.40-6.50); %Basophils 0.2 % (0.0-1.0); %Eosinophils 5.7 % (0.0-10.0); %Lymphocytes 23.9 % (21.0-51.0); %Monocytes 14.4 % (0.0-10.0); %Neutrophils 55.8 % (42.0-75.0); Hemoglobin 9.6 g/dL (12.0-16.0); Mean Corpuscular HGB CONC 33.2 g/dL (32.0-36.0); Mean Corpuscular Hemoglobin 31.8 pg (27.0-31.0); Mean Platelet Volume 7.3 fL (7.4-10.4); Platelet Count 162 thou/uL (130-400); RBC Distribution Width 12.7 % (11.5-14.5); White Blood Cell (WBC) Count 4.1 thou/uL (4.8-10.8)
[2021-12-14 04:49] LABS: Anion Gap 17 mmol/L (10-20); BUN (Urea Nitrogen) 54 mg/dL (9.8-20.1); Calc. Creatinine Clearance 14 mL/min (70-130); Calcium 6.2 mg/dL (7.8-10.44); Carbon Dioxide 17 mmol/L (23-31); Chloride 97 mmol/L (98-107); Glucose 94 mg/dL (83-110); Potassium 5.1 mmol/L (3.5-5.1); Sodium 126 mmol/L (136-145)
[2021-12-14] MEDS: Acetaminophen 325 MG TAB PO SCH ×4 (05:50→23:26)
[2021-12-14] MEDS: Ketorolac Tromethamine 30 MG/ML VIAL IVP SCH ×3 (05:51→21:04)
[2021-12-14] MEDS: Levothyroxine Sodium 50 MCG TAB PO SCH (05:51)
[2021-12-14] MEDS: DOPamine 400 MG/D5W 250 ML 250 ML IVPB SCH (06:09)
[2021-12-14] MEDS: Megestrol Acetate 800 MG/20 ML UDCUP PO SCH ×4 (07:56→19:58)
[2021-12-14] MEDS: Dronedarone HCl 400 MG TAB PO SCH ×2 (07:57→18:13)
[2021-12-14] MEDS: Cephalexin 250 MG CAP PO SCH ×3 (07:57→19:58)
[2021-12-14] MEDS: Aspirin 81 mg Enteric Coated Tablet PO SCH (07:57)
[2021-12-14 09:36] LABS: Anion Gap 18 mmol/L (10-20); BUN (Urea Nitrogen) 53 mg/dL (9.8-20.1); Calc. Creatinine Clearance 14 mL/min (70-130); Calcium 6.4 mg/dL (7.8-10.44); Carbon Dioxide 17 mmol/L (23-31); Chloride 97 mmol/L (98-107); Glucose 83 mg/dL (83-110); Sodium 127 mmol/L (136-145)
[2021-12-14] MEDS: Albumin 25% 25 GM/100 ML BOT IVPB SCH ×3 (11:11→23:26)
[2021-12-14] MEDS: Lidocaine 5% Patch TD SCH (11:11)
[2021-12-14] MEDS: Sodium Chloride 0.9% 1,000 ML IV SCH (11:12)
[2021-12-14] MEDS ORDERED: HYDROcodone/Acetaminophen 5/325 mg Tablet PO PRN (15:46)
[2021-12-14 16:07] LABS: SARS-CoV-2 PCR by NAA Not Detected (NotDetected)
[2021-12-14] MEDS ORDERED: Albuterol Sulfate 2.5 mg/3 ml Neb NEB PRN (17:21)
[2021-12-14] MEDS ORDERED: Furosemide 40 MG/4 ML VIAL SLOW IVP SCH (18:15)
[2021-12-14] MEDS: Lorazepam 0.5 MG TAB PO PRN ×2 (18:17→21:57)
[2021-12-14] MEDS: Morphine 2 MG/ML VIAL SLOW IVP PRN ×2 (19:02→20:57)
[2021-12-14] MEDS ORDERED: diphenhydrAMINE 50 MG/ML VIAL IVP PRN (21:06)
[2021-12-14] MEDS ORDERED: diphenhydrAMINE 50 MG/ML VIAL ONE (21:06)
[2021-12-14] MEDS ORDERED: Haloperidol Lactate 5 MG/ML VIAL SLOW IVP SCH (23:30)
[2021-12-15] MEDS: Transdermal Patch Removal TOP SCH ×2 (02:28→23:19)
[2021-12-15] MEDS ORDERED: Digoxin 0.5 MG/2 ML AMP ONE (04:20)
[2021-12-15 04:34] LABS: Hemoglobin 10.1 g/dL (12.0-16.0); Mean Corpuscular HGB CONC 32.5 g/dL (32.0-36.0); Mean Corpuscular Hemoglobin 31.8 pg (27.0-31.0); Mean Corpuscular Volume 97.8 fL (78.0-98.0); Mean Platelet Volume 7.2 fL (7.4-10.4); Platelet Count 213 thou/uL (130-400); RBC Distribution Width 12.9 % (11.5-14.5); Red Blood Cell (RBC) Count 3.17 mill/uL (4.20-5.40); White Blood Cell (WBC) Count 4.3 thou/uL (4.8-10.8)
[2021-12-15] MEDS ORDERED: Digoxin 0.5 MG/2 ML AMP SLOW IVP SCH ×3 (04:45→15:45)
[2021-12-15 04:54] LABS: Anion Gap 20 mmol/L (10-20); BUN (Urea Nitrogen) 60 mg/dL (9.8-20.1); Calc. Creatinine Clearance 14 mL/min (70-130); Calcium 6.6 mg/dL (7.8-10.44); Carbon Dioxide 15 mmol/L (23-31); Chloride 95 mmol/L (98-107); Glucose 71 mg/dL (83-110); Potassium 5.1 mmol/L (3.5-5.1); Sodium 125 mmol/L (136-145)
[2021-12-15 04:56] LABS: Band 29 % (5-11); Eosinophils 5 % (0-10); Lymphocytes 14 % (21-51); MDiff Complete? YES; Monocytes 18 % (0-10); Neutrophil 34 % (42-75)
[2021-12-15] MEDS: Acetaminophen 325 MG TAB PO SCH ×4 (04:56→23:19)
[2021-12-15] MEDS: Levothyroxine Sodium 50 MCG TAB PO SCH (04:56)
[2021-12-15] MEDS: Ketorolac Tromethamine 30 MG/ML VIAL IVP SCH ×3 (04:57→21:24)
[2021-12-15] MEDS: Albumin 25% 25 GM/100 ML BOT IVPB SCH ×2 (05:59→12:05)
[2021-12-15] MEDS ORDERED: Promethazine HCl 25 MG SUPP PR PRN (07:57)
[2021-12-15] MEDS: Cephalexin 250 MG CAP PO SCH ×3 (08:49→21:23)
[2021-12-15] MEDS: Digoxin 0.5 MG/2 ML AMP SLOW IVP SCH (08:49)
[2021-12-15] MEDS: Aspirin 81 mg Enteric Coated Tablet PO SCH (08:49)
[2021-12-15] MEDS: Megestrol Acetate 800 MG/20 ML UDCUP PO SCH ×4 (08:49→21:23)
[2021-12-15] MEDS: Dronedarone HCl 400 MG TAB PO SCH (08:49)
[2021-12-15 09:16] LABS: Anion Gap 20 mmol/L (10-20); BUN (Urea Nitrogen) 57 mg/dL (9.8-20.1); Calc. Creatinine Clearance 14 mL/min (70-130); Calcium 6.6 mg/dL (7.8-10.44); Carbon Dioxide 15 mmol/L (23-31); Chloride 95 mmol/L (98-107); Glucose 65 mg/dL (83-110); Potassium 5.2 mmol/L (3.5-5.1); Sodium 125 mmol/L (136-145)
[2021-12-15] MEDS: Fentanyl 100 MCG/2 ML VIAL SLOW IVP PRN ×2 (11:02→19:23)
[2021-12-15] MEDS: Lidocaine 5% Patch TD SCH (11:04)
[2021-12-15] MEDS ORDERED: Benzonatate 100 MG CAP PO PRN (15:01)
[2021-12-15] MEDS ORDERED: Amiodarone 450 MG in Dextrose 5% in Water 250 ML IVPB SCH (15:45)
[2021-12-15] MEDS ORDERED: Amiodarone 150 MG in Dextrose 5% in Water 100 ML IVPB SCH (15:45)
[2021-12-15] MEDS ORDERED: Metoprolol Tartrate 5 MG/5 ML VIAL IVP SCH (16:00)
[2021-12-15] MEDS ORDERED: Zolpidem Tartrate 5 MG TAB PO SCH (21:45)
[2021-12-16] MEDS: Acetaminophen 325 MG TAB PO SCH ×5 (00:08→23:28)
[2021-12-16] MEDS: cloNIDine 0.1 MG TAB PO PRN (01:04)
[2021-12-16 04:20] VITALS: TEMP 96.8
[2021-12-16] MEDS: hydrALAZINE 20 MG/ML VIAL SLOW IVP PRN (06:04)
[2021-12-16 06:11] VITALS: BP 185/83
[2021-12-16] MEDS: Levothyroxine Sodium 50 MCG TAB PO SCH (07:04)
[2021-12-16] MEDS: Ketorolac Tromethamine 30 MG/ML VIAL IVP SCH ×3 (07:04→20:58)
[2021-12-16] MEDS: Aspirin 81 mg Enteric Coated Tablet PO SCH (08:58)
[2021-12-16] MEDS: Cephalexin 250 MG CAP PO SCH ×3 (08:58→20:58)
[2021-12-16] MEDS: Megestrol Acetate 800 MG/20 ML UDCUP PO SCH ×4 (08:58→20:58)
[2021-12-16] MEDS: Digoxin 0.5 MG/2 ML AMP SLOW IVP SCH (08:58)
[2021-12-16] MEDS: Lorazepam 0.5 MG TAB PO PRN (10:23)
[2021-12-16] MEDS: Lidocaine 5% Patch TD SCH (12:04)
[2021-12-16] MEDS: Transdermal Patch Removal TOP SCH (23:28)
[2021-12-17] MEDS: Ketorolac Tromethamine 30 MG/ML VIAL IVP SCH (04:11)
[2021-12-17] MEDS: Acetaminophen 325 MG TAB PO SCH ×2 (05:16→13:39)
[2021-12-17] MEDS: Levothyroxine Sodium 50 MCG TAB PO SCH (05:17)
[2021-12-17] MEDS ORDERED: Ondansetron PF 4 MG/2 ML Vial IVP PRN (07:58)
[2021-12-17] MEDS ORDERED: Ondansetron PF 4 MG/2 ML Vial IVP SCH (08:15)
[2021-12-17] MEDS: Aspirin 81 mg Enteric Coated Tablet PO SCH (08:58)
[2021-12-17] MEDS: Digoxin 0.5 MG/2 ML AMP SLOW IVP SCH (08:59)
[2021-12-17] MEDS: Megestrol Acetate 800 MG/20 ML UDCUP PO SCH (08:59)
[2021-12-17] MEDS: Cephalexin 250 MG CAP PO SCH (08:59)
[2021-12-17] MEDS ORDERED: Heparin 1,000 UNITS/ML VIAL ONE (09:54)
[2021-12-17] MEDS: Fentanyl 100 MCG/2 ML VIAL SLOW IVP PRN ×2 (10:20→12:27)
[2021-12-17] MEDS: Lidocaine 5% Patch TD SCH (11:42)
== END 2021-12-17 13:38 | disposition hospice, home (50) | DRG 243 ==
LOC: ERS 21:52 → T4-B 12-07 04:13 → 2NO 12-07 14:31 → OBSVTOIN 12-08 13:31
PROVIDERS: ADMIT Specialist; ATTEND Specialist
PROC: 02HV33Z Insertion of Infusion Device into Superior Vena Cava, Percutaneous Approach (ICD-10-PCS; 2021-12-08)
PROC: B548ZZA Ultrasonography of Superior Vena Cava, Guidance (ICD-10-PCS; 2021-12-08)
PROC: B5181ZA Fluoroscopy of Superior Vena Cava using Low Osmolar Contrast, Guidance (ICD-10-PCS; 2021-12-08)
PROC: 0JH607Z Insertion of Cardiac Resynchronization Pacemaker Pulse Generator into Chest Subcutaneous Tissue and Fascia, Open Approach (ICD-10-PCS; principal; 2021-12-09)
PROC: 02H63JZ Insertion of Pacemaker Lead into Right Atrium, Percutaneous Approach (ICD-10-PCS; 2021-12-09)
PROC: 02HK3JZ Insertion of Pacemaker Lead into Right Ventricle, Percutaneous Approach (ICD-10-PCS; 2021-12-09)
PROC: 02HL3JZ Insertion of Pacemaker Lead into Left Ventricle, Percutaneous Approach (ICD-10-PCS; 2021-12-09)
PROC: 02HV33Z Insertion of Infusion Device into Superior Vena Cava, Percutaneous Approach (ICD-10-PCS; 2021-12-13)
PROC: B5181ZA Fluoroscopy of Superior Vena Cava using Low Osmolar Contrast, Guidance (ICD-10-PCS; 2021-12-13)
PROC: B548ZZA Ultrasonography of Superior Vena Cava, Guidance (ICD-10-PCS; 2021-12-13)
DX: I49.5 Sick sinus syndrome (principal); M96.0 Pseudarthrosis after fusion or arthrodesis; I31.3 Pericardial effusion (noninflammatory); N17.9 Acute kidney failure, unspecified; E87.1 Hypo-osmolality and hyponatremia; I50.32 Chronic diastolic (congestive) heart failure; C85.90 Non-Hodgkin lymphoma, unspecified, unspecified site; M41.86 Other forms of scoliosis, lumbar region; E11.9 Type 2 diabetes mellitus without complications; K21.9 Gastro-esophageal reflux disease without esophagitis; M81.0 Age-related osteoporosis without current pathological fracture; Z20.822 Contact with and (suspected) exposure to COVID-19; G89.29 Other chronic pain; M48.061 Spinal stenosis, lumbar region without neurogenic claudication; M54.9 Dorsalgia, unspecified; I11.0 Hypertensive heart disease with heart failure; E03.9 Hypothyroidism, unspecified; I95.9 Hypotension, unspecified; Z90.710 Acquired absence of both cervix and uterus; Z90.89 Acquired absence of other organs; Z98.1 Arthrodesis status; Z79.82 Long term (current) use of aspirin; Z79.899 Other long term (current) drug therapy; Z88.2 Allergy status to sulfonamides; Z88.8 Allergy status to other drugs, medicaments and biological substances; Z82.49 Family history of ischemic heart disease and other diseases of the circulatory system
CPT/HCPCS: 33208; 36415; 36416; 36569; 71045; 72100; 72131; 72148; 80048; 80053; 80061; 82565; 83036; 83880; 84443; 85025; 93005; 93010; 93306; 96374; 96375; 99152; 99153; C1751; C1785; C1898; G0378; J0282; J0360; J0690; J1160; J1200; J1265; J1630; J1644; J1885; J1940; J2001; J2250; J2270; J2405; J3010; J7030; J7042; J7050; J7070; P9047; Q0162; Q9967; U0003; U0005